=== PATIENT | male | born 1995 | race Caucasian/White ===

== ENCOUNTER 2016-10-15 02:38 | Inpatient (IN) ==
[2016-10-15] MEDS ORDERED: Propofol 500 MG/50 ML INFUS..BTL ONE (02:55)
[2016-10-15] MEDS ORDERED: Ondansetron 4 MG/2 ML VIAL IVP ONE (02:58)
[2016-10-15] MEDS ORDERED: 0.9 % Sodium Chloride 1,000 ML IVC ONE ×2 (02:58→03:01)
[2016-10-15] MEDS ORDERED: *HR* Etomidate 20 MG/10 ML AMPUL IVP ONE (02:59)
[2016-10-15] MEDS ORDERED: *HR* Rocuronium Bromide 50 MG/5 ML VIAL IVP ONE (02:59)
--- NOTE | 2016-10-15 03:14 | Emergency Department Note ---
Overdose - [facility] Narrative Medical decision making narrative: After intubation, vitals within normal limits. Leukocytosis 12.3. BMP not concerning. UA negative. Urine tox positive for opiates and marijuana. ABG showed pH of 7.19. Respiratory was aware of this and change the vent settings. CT head negative, CXR negative for any acute cardiopulm process. Spoke with Dr. Sahu for admission to ICU. He recommended switching current propofol drip to precedex to prevent making the patient any more acidotic. WIll switch med orders. - Medical Records Medical records reviewed: Yes I reviewed the patient's medical records. - Lab Data Lab results reviewed: Yes I reviewed the patient's lab results. Result diagrams: 10/15/16 03:53 10/15/16 03:53 Lab Results 10/15/16 10/15/16 10/15/16 Range/Units 03:22 03:22 03:32 WBC (4.3-11.1) K/mcL RBC (4.19-5.50) M/mcL Hgb (12.9-16.9) g/dL Hct (37.5-50.1) % MCV (83.0-100.0) fL MCH (28.0-33.3) pg MCHC (31.6-35.5) g/dL RDW (11.5-14.5) % Plt Count (140-400) K/mcL MPV (9.4-12.4) fL Immature Gran % (0-4) % Seg Neutrophils % % Lymphocytes % % Monocytes % % Eosinophils % % Basophils % % Neutrophils # (1.6-8.9) K/mcL Lymphocytes # (0.6-4.6) K/mcL Monocytes # (0.0-1.3) K/mcL Eosinophils # (0.0-0.6) K/mcL Basophils # (0.0-0.2) K/mcL ABG pH 7.19 L* (7.32-7.45) pH Units ABG pCO2 64 H (35-45) mmHg ABG pO2 350 H (85-104) mmHg ABG HCO3 24.4 (21-27) mEQ/L ABG Total CO2 26.4 H (20-26) mEq/L ABG O2 Saturation 100 H (95-98) % ABG Base Excess -5.0 L (-2.0 to 3.0) mEq/L Blood Gas Modality VCT Inspired O2 100 % Sodium (136-145) mEq/L Potassium (3.5-4.5) mEq/L Chloride (98-109) mEq/L Carbon Dioxide (19-29) mEq/L BUN (8-26) mg/dL Creatinine (0.72-1.25) mg/dL Est GFR ( Amer) (> 60) Est GFR (Non-Af Amer) (> 60) BUN/Creatinine Ratio (6-26) Glucose (70-99) mg/dL POC Glucose (58-89) Calculated Osmolality (280-300) Lactic Acid (0.5-2.2) mmol/L Calcium (8.6-10.8) mg/dL Total Bilirubin (0.2-1.2) mg/dL Direct Bilirubin (0.0-0.5) mg/dL Indirect Bilirubin (0.0-1.2) mg/dL AST (5-34) Units/L ALT (0-55) Units/L Alkaline Phosphatase (38-126) Units/L Serum Total Protein (6.0-8.3) g/dL Albumin (3.5-5.0) g/dL Globulin (2.4-3.5) g/dL Albumin/Globulin Ratio (1.1-2.2) Urine Color Yellow (Yellow) Urine Clarity Clear (Clear) Urine pH 6.5 (5.0-8.0) pH Units Ur Specific [place] 1.012 (1.010-1.025) Urine Protein 100 H (Neg-Trace) mg/dL Urine Glucose (UA) 100 H (Normal) mg/dL Urine Ketones Negative (Negative) mg/dL Urine Blood Trace H (Negative) Urine Nitrite Negative (Negative) Urine Bilirubin Negative (Negative) Urine Urobilinogen Normal (Normal) mg/dL Ur Leukocyte Esterase Negative (Negative) Urine Microscopic RBC 0-3 (0-3) per hpf Urine Microscopic WBC 0-3 (0-3) per hpf Ur Squamous Epith Cells Many H (None-Few) per lpf Urine Bacteria None Seen (None-Few) per hpf Hyaline Casts None Seen (None-Few) per lpf Salicylates (15-30) mg/dL Urine Opiates Screen Positive H (Iyqxqg=681) ng/mL Acetaminophen (10-30) mcg/mL Ur Barbiturates Screen Negative (Xcxgqv=317) ng/mL Ur Phencyclidine Scrn Negative (Cutoff=25) ng/mL Ur Amphetamines Screen Negative (Zaxvvd=1657) ng/mL U Benzodiazepines Scrn Negative (Iouksv=977) ng/mL Urine Cocaine Screen Negative (Cutoff= 300) ng/mL U Marijuana (THC) Screen Positive H (Cutoff = 50) ng/mL Ethyl Alcohol (0-10) mg/dL 10/15/16 10/15/16 10/15/16 Range/Units 03:53 03:53 03:53 WBC 12.3 H (4.3-11.1) K/mcL RBC 5.11 (4.19-5.50) M/mcL Hgb 15.8 (12.9-16.9) g/dL Hct 46.9 (37.5-50.1) % MCV 91.8 (83.0-100.0) fL MCH 30.9 (28.0-33.3) pg MCHC 33.7 (31.6-35.5) g/dL RDW 13.6 (11.5-14.5) % Plt Count 202 (140-400) K/mcL MPV 9.9 (9.4-12.4) fL Immature Gran % 0.6 (0-4) % Seg Neutrophils % 85.7 % Lymphocytes % 7.5 % Monocytes % 5.7 % Eosinophils % 0.2 % Basophils % 0.3 % Neutrophils # 10.6 H (1.6-8.9) K/mcL Lymphocytes # 0.9 (0.6-4.6) K/mcL Monocytes # 0.7 (0.0-1.3) K/mcL Eosinophils # 0.0 (0.0-0.6) K/mcL Basophils # 0.0 (0.0-0.2) K/mcL ABG pH (7.32-7.45) pH Units ABG pCO2 (35-45) mmHg ABG pO2 (85-104) mmHg ABG HCO3 (21-27) mEQ/L ABG Total CO2 (20-26) mEq/L ABG O2 Saturation (95-98) % ABG Base Excess (-2.0 to 3.0) mEq/L Blood Gas Modality Inspired O2 % Sodium 145 (136-145) mEq/L Potassium 3.3 L (3.5-4.5) mEq/L Chloride 110 H (98-109) mEq/L Carbon Dioxide 22 (19-29) mEq/L BUN 11 (8-26) mg/dL Creatinine 0.88 (0.72-1.25) mg/dL Est GFR ( Amer) > 60 (> 60) Est GFR (Non-Af Amer) > 60 (> 60) BUN/Creatinine Ratio 13 (6-26) Glucose 146 H (70-99) mg/dL POC Glucose (58-89) Calculated Osmolality 302 H (280-300) Lactic Acid 2.9 H (0.5-2.2) mmol/L Calcium 8.1 L (8.6-10.8) mg/dL Total Bilirubin 0.3 (0.2-1.2) mg/dL Direct Bilirubin 0.2 (0.0-0.5) mg/dL Indirect Bilirubin 0.1 (0.0-1.2) mg/dL AST 32 (5-34) Units/L ALT 35 (0-55) Units/L Alkaline Phosphatase 64 (38-126) Units/L Serum Total Protein 7.5 (6.0-8.3) g/dL Albumin 4.3 (3.5-5.0) g/dL Globulin 3.2 (2.4-3.5) g/dL Albumin/Globulin Ratio 1.3 (1.1-2.2) Urine Color (Yellow) Urine Clarity (Clear) Urine pH (5.0-8.0) pH Units Ur Specific [place] (1.010-1.025) Urine Protein (Neg-Trace) mg/dL Urine Glucose (UA) (Normal) mg/dL Urine Ketones (Negative) mg/dL Urine Blood (Negative) Urine Nitrite (Negative) Urine Bilirubin (Negative) Urine Urobilinogen (Normal) mg/dL Ur Leukocyte Esterase (Negative) Urine Microscopic RBC (0-3) per hpf Urine Microscopic WBC (0-3) per hpf Ur Squamous Epith Cells (None-Few) per lpf Urine Bacteria (None-Few) per hpf Hyaline Casts (None-Few) per lpf Salicylates < 5.0 L (15-30) mg/dL Urine Opiates Screen (Jwkfxk=874) ng/mL Acetaminophen < 1.0 L (10-30) mcg/mL Ur Barbiturates Screen (Vlebga=283) ng/mL Ur Phencyclidine Scrn (Cutoff=25) ng/mL Ur Amphetamines Screen (Sqeitc=1542) ng/mL U Benzodiazepines Scrn (Clxobj=734) ng/mL Urine Cocaine Screen (Cutoff= 300) ng/mL U Marijuana (THC) Screen (Cutoff = 50) ng/mL Ethyl Alcohol 224 H (0-10) mg/dL 10/15/16 Range/Units 05:22 WBC (4.3-11.1) K/mcL RBC (4.19-5.50) M/mcL Hgb (12.9-16.9) g/dL Hct (37.5-50.1) % MCV (83.0-100.0) fL MCH (28.0-33.3) pg MCHC (31.6-35.5) g/dL RDW (11.5-14.5) % Plt Count (140-400) K/mcL MPV (9.4-12.4) fL Immature Gran % (0-4) % Seg Neutrophils % % Lymphocytes % % Monocytes % % Eosinophils % % Basophils % % Neutrophils # (1.6-8.9) K/mcL Lymphocytes # (0.6-4.6) K/mcL Monocytes # (0.0-1.3) K/mcL Eosinophils # (0.0-0.6) K/mcL Basophils # (0.0-0.2) K/mcL ABG pH (7.32-7.45) pH Units ABG pCO2 (35-45) mmHg ABG pO2 (85-104) mmHg ABG HCO3 (21-27) mEQ/L ABG Total CO2 (20-26) mEq/L ABG O2 Saturation (95-98) % ABG Base Excess (-2.0 to 3.0) mEq/L Blood Gas Modality Inspired O2 % Sodium (136-145) mEq/L Potassium (3.5-4.5) mEq/L Chloride (98-109) mEq/L Carbon Dioxide (19-29) mEq/L BUN (8-26) mg/dL Creatinine (0.72-1.25) mg/dL Est GFR ( Amer) (> 60) Est GFR (Non-Af Amer) (> 60) BUN/Creatinine Ratio (6-26) Glucose (70-99) mg/dL POC Glucose 91 H (58-89) Calculated Osmolality (280-300) Lactic Acid (0.5-2.2) mmol/L Calcium (8.6-10.8) mg/dL Total Bilirubin (0.2-1.2) mg/dL Direct Bilirubin (0.0-0.5) mg/dL Indirect Bilirubin (0.0-1.2) mg/dL AST (5-34) Units/L ALT (0-55) Units/L Alkaline Phosphatase (38-126) Units/L Serum Total Protein (6.0-8.3) g/dL Albumin (3.5-5.0) g/dL Globulin (2.4-3.5) g/dL Albumin/Globulin Ratio (1.1-2.2) Urine Color (Yellow) Urine Clarity (Clear) Urine pH (5.0-8.0) pH Units Ur Specific [place] (1.010-1.025) Urine Protein (Neg-Trace) mg/dL Urine Glucose (UA) (Normal) mg/dL Urine Ketones (Negative) mg/dL Urine Blood (Negative) Urine Nitrite (Negative) Urine Bilirubin (Negative) Urine Urobilinogen (Normal) mg/dL Ur Leukocyte Esterase (Negative) Urine Microscopic RBC (0-3) per hpf Urine Microscopic WBC (0-3) per hpf Ur Squamous Epith Cells (None-Few) per lpf Urine Bacteria (None-Few) per hpf Hyaline Casts (None-Few) per lpf Salicylates (15-30) mg/dL Urine Opiates Screen (Uaoccf=124) ng/mL Acetaminophen (10-30) mcg/mL Ur Barbiturates Screen (Pxxwhv=156) ng/mL Ur Phencyclidine Scrn (Cutoff=25) ng/mL Ur Amphetamines Screen (Ppjpnn=4474) ng/mL U Benzodiazepines Scrn (Zhdgos=604) ng/mL Urine Cocaine Screen (Cutoff= 300) ng/mL U Marijuana (THC) Screen (Cutoff = 50) ng/mL Ethyl Alcohol (0-10) mg/dL - Radiology Data Radiology results reviewed: Yes I reviewed the patient's radiology results. Chest X-Ray 10/15/16 02:58 IMPRESSION: ET tube in good position with no acute cardiopulmonary process D/ / Paul Painter MD / Paul Painter MD Interpreting Provider: Paul Painter MD Head CT 10/15/16 02:58 IMPRESSION: No acute intracranial abnormality. D/ / Margartio Le MD / Margarito Le MD Interpreting Provider: Margarito Le MD - EKG Data EKG attestation: Yes I reviewed and interpreted this EKG. EKG results narrative: 10/15/2016 and 02:41. Sinus rhythm. First-degree block. Rate 70. ID 244. QRS 117. QTC 434. Normal axis. No acute ST elevation or depression. Overdose HPI - General Chief Complaint: ED Overdose Stated Complaint: overdose Time Seen by Provider: 10/15/16 02:47 Source: EMS Mode of arrival: EMS Limitations: altered mental status Nursing Notes Reviewed: Yes Vital Signs Reviewed: Yes - History of Present Illness HPI Narrative: Patient is a 21-year-old male that presented unresponsive via EMS. EMS and police state the patient was found unresponsive at a local bar. He was taken outside and water was thrown on him to try to wake him up. Witnesses say that they were unsure as to what happened or how long he was down. On arrival, EMS stated that oxygen saturation was in the 30s. They gave him 2 mg of Narcan without much improvement in mental status. They placed a nasal trumpet and began bagging the patient. Upon arrival, patient was not responsive, mildly groaning. Pupils were equal and reactive but miotic. 2 mg of Narcan was given here, patient begans shaking and was extending his upper extremities in a possible decorticate position. Patient had to be intubated due to not protecting his airway. Rocuronium and etomidate were used. Patient placed on propofol drip. - Related Data Home Medications Medication Instructions Recorded Confirmed No Known Home Drugs 10/15/16 10/15/16 Allergies Allergy/AdvReac Type Severity Reaction Status Date / Time No Known Allergies Allergy Verified 10/15/16 02:39 Limitations: ROS unobtainable due to patients medical condition Past Medical History - Past Medical History Medical history: Reports: non-contributory Psychiatric history: Reports: no psych history - Social History Smoking Status: Unknown if ever smoked Smokeless Tobacco Status: No Alcohol use: Reports: unknown Drug use: Reports: unknown Physical Exam - General Limitations: altered mental status General appearance: obtunded - Head Head exam: atraumatic, normocephalic, normal inspection - Eye Eye exam: Present: PERRL, EOMI, miosis - Respiratory Respiratory exam: Present: normal lung sounds bilaterally, other (Patient being bagged) - Cardiovascular Cardiovascular exam: Present: regular rate, normal rhythm, normal heart sounds - Abdominal Exam Abdominal exam: Present: soft, Non-Tender. Absent: tenderness, distention, guarding, rebound, rigidity - Extremities Exam Extremities exam: Present: normal inspection - Neurological Exam Neurological exam: Present: other (unresponsive) - Psychiatric Psychiatric exam: Present: other - Skin Skin exam: Present: intact, other (cold,wet) Course Course Narrative: After intubation, vitals within normal limits. Leukocytosis 12.3. BMP not concerning. UA negative. Urine tox positive for opiates and marijuana. ABG showed pH of 7.19. Respiratory was aware of this and change the vent settings. CT head negative, CXR negative for any acute cardiopulm process. Spoke with Dr. Sahu for admission to ICU. He recommended switching current propofol drip to precedex to prevent making the patient any more acidotic. WIll switch med orders. Chest X-Ray 10/15/16 02:58 IMPRESSION: ET tube in good position with no acute cardiopulmonary process D/ / Paul Painter MD / Paul Painter MD Interpreting Provider: Paul Painter MD Head CT 10/15/16 02:58 IMPRESSION: No acute intracranial abnormality. D/ / Margarito Le MD / Margarito Le MD Interpreting Provider: Margarito Le MD Vital Signs Temperature 97.4 F L 10/15/16 02:40 Pulse Rate 54 10/15/16 02:40 Respiratory Rate 8 10/15/16 02:40 Blood Pressure 137/100 10/15/16 02:40 O2 Sat by Pulse Oximetry 100 10/15/16 02:40 Temperature 97.4 F L 10/15/16 02:40 Pulse Rate 60 10/15/16 04:41 Respiratory Rate 16 10/15/16 04:41 Blood Pressure 113/56 10/15/16 04:41 O2 Sat by Pulse Oximetry 99 10/15/16 04:41 Oxygen Delivery Oxygen Delivery Ventilator Procedures - Intubation Time out performed: Yes sedative: Etomidate Mg Given: 20 paralytic: Rocuronium Mg Given: 70 Laryngoscope: Cristofer ET Tube Size: Oral ET Tube Uncuffed: No Tube Secured Depth (cm): 24 Tube Secured Location: lips Tube Placement Confirmation: visualized tube passing through cords, equal breath sounds bilaterally, no breath sounds over epigastrium Patient Tolerated Procedure: well, no complications Intubation Complications: none Additional Comments: ET tube in good position on chest x-ray Disposition Clinical Impression: Opiate abuse, episodic, Marijuana abuse Overdose Qualifiers: Encounter type: initial encounter Injury intent: accidental or unintentional Qualified Code(s): T50.901A - Poisoning by unspecified drugs, medicaments and biological substances, accidental (unintentional), initial encounter Disposition: Admitted As Inpatient Condition: Serious Time of Disposition: 04:52 Attestation Statement - Attestation Attestation: I examined this patient and my medical decision-making was reviewed with the POSITION DESCRIPTION MANAGER/PA/Advanced Practice Nurse/Resident Physician. I agree with the documented findings, disposition and treatment plan as described except to the extent set forth below. Patient to emergency department by [facility]. Patient was found unresponsive inside a local bar. People carried him outside into the rain and called 911. Medics and police anrrived and nobody knew what he had taken. Medics state when they arrived his oxygen saturation was in the 30s. He had been administered 2 mg of intranasal Narcan by police. They began bag valve mask ventilation and placed a nasal trumpet. They also placed an IV and gave him 2 mg of Narcan IV. On his arrival here patient was unresponsive and not breathing. His oxygen saturation was 98%. He was given 4 mg of Narcan IV. He began breathing on his own and did cough. He was not following commands or opening his eyes. Patient appeared to be extending his upper arms. Concern for decorticate posturing. Patient was intubated after etomidate and rocuronium. Sedated on propofol drip at this time. Mom and dad at bedside and do confirm he has a prior history of heroin abuse. 40 minutes of critical care exclusive of separately billable procedures.
[2016-10-15 03:34] LABS: Bilirubin,Urine Negative (Negative); Blood,Urine Trace (Negative); Clarity,Urine Clear (Clear); Color,Urine Yellow (Yellow); Glucose,Urine (UA) 100 mg/dL (Normal); Ketones,Urine Negative (Negative); Leukocyte Esterase,Urine Negative (Negative); Nitrite,Urine Negative (Negative); PH,Urine 6.5 pH Units (5.0-8.0); Protein,Urine 100 mg/dL (Neg-Trace); Specific Gravity,Urine 1.012 (1.010-1.025); Urobilinogen,Urine Normal (Normal)
[2016-10-15 03:36] LABS: Bacteria,Urine None Seen per hpf (None-Few); Hyaline Casts,Urine None Seen per lpf (None-Few); RBC,Urine 0-3 per hpf (0-3); Squamous Epithelial Cell,Urine Many per lpf (None-Few); WBC,Urine 0-3 per hpf (0-3)
[2016-10-15 03:40] LABS: Amphetamine Screen,Urine Negative ng/mL (Cutoff=1000); Barbiturate Screen,Urine Negative ng/mL (Cutoff=200); Benzodiazepines Screen,Urine Negative ng/mL (Cutoff=200); Cannabinoid Screen,Urine Positive ng/mL (Cutoff = 50); Cocaine Screen,Urine Negative ng/mL (Cutoff= 300); Opiate Screen,Urine Positive ng/mL (Cutoff=300); Phencyclidine Screen,Urine Negative ng/mL (Cutoff=25)
[2016-10-15 03:40] LABS: ABG HCO3 24.4 mEQ/L (21-27); ABG Oxygen Saturation 100 % (95-98); ABG PCO2 64 mmHg (35-45); ABG PO2 350 mmHg (85-104); ABG TCO2 26.4 mEq/L (20-26)
[2016-10-15 03:41] LABS: Blood Gas FiO2 100 %
[2016-10-15 03:42] LABS: ABG PH 7.19 pH Units (7.32-7.45)
[2016-10-15 04:01] LABS: Basophils % 0.3 %; Eosinophils % 0.2 %; Hematocrit 46.9 % (37.5-50.1); Hemoglobin 15.8 g/dL (12.9-16.9); Immature Granulocytes % 0.6 % (0-4); Lymphocytes # 0.9 K/mcL (0.6-4.6); Lymphocytes % 7.5 %; Mean Corpuscular HGB Conc 33.7 g/dL (31.6-35.5); Mean Corpuscular Hemoglobin 30.9 pg (28.0-33.3); Mean Corpuscular Volume 91.8 fL (83.0-100.0); Mean Platelet Volume 9.9 fL (9.4-12.4); Monocytes # 0.7 K/mcL (0.0-1.3); Monocytes % 5.7 %; Neutrophils # 10.6 K/mcL (1.6-8.9); Platelet Count 202 K/mcL (140-400); Red Blood Count 5.11 M/mcL (4.19-5.50); Red Cell Distribution Width 13.6 % (11.5-14.5); Segmented Neutrophils % 85.7 %
[2016-10-15 04:16] LABS: Alanine Aminotransferase 35 Units/L (0-55); Albumin 4.3 g/dL (3.5-5.0); Albumin/Globulin Ratio 1.3 (1.1-2.2); Alkaline Phosphatase 64 Units/L (38-126); Aspartate Amino Transferase 32 Units/L (5-34); BUN/Creatinine Ratio 13 (6-26); Bilirubin,Direct 0.2 mg/dL (0.0-0.5); Bilirubin,Indirect 0.1 mg/dL (0.0-1.2); Bilirubin,Total 0.3 mg/dL (0.2-1.2); Blood Urea Nitrogen 11 mg/dL (8-26); Calcium 8.1 mg/dL (8.6-10.8); Carbon Dioxide 22 mEq/L (19-29); Chloride 110 mEq/L (98-109); Ethanol 224 mg/dL (0-10); Globulin 3.2 g/dL (2.4-3.5); Glucose 146 mg/dL (70-99); Osmolality,Calculated 302 (280-300); Potassium 3.3 mEq/L (3.5-4.5); Sodium 145 mEq/L (136-145); Total Protein 7.5 g/dL (6.0-8.3); eGFR For African Americans > 60 (> 60); eGFR For Non-African Americans > 60 (> 60)
[2016-10-15 04:17] LABS: Acetaminophen < 1.0 mcg/mL (10-30); Salicylate < 5.0 mg/dL (15-30)
[2016-10-15] MEDS ORDERED: 0.9 % Sodium Chloride 1,000 ML IVC SCH ×2 (04:30→05:00)
[2016-10-15] MEDS ORDERED: Acetaminophen 650 MG RECTAL SUPP RC PRN (04:46)
[2016-10-15] MEDS ORDERED: Naloxone 0.4 MG/ML INJ IVP PRN (04:46)
[2016-10-15] MEDS ORDERED: Ondansetron 4 MG/2 ML VIAL IVP PRN ×2 (04:46→15:20)
[2016-10-15] MEDS ORDERED: *HR* LORazepam 2 MG/ML VIAL IVP PRN ×3 (04:53)
--- NOTE | 2016-10-15 04:58 | Internal Med History&Physical ---
Date of Encounter: 10/15/16 Time of Encounter: 04:56 Assessment and Plan (1) Metabolic acidosis with respiratory acidosis Current visit: Yes Status: Acute Acute metabolic acidosis and respiratory acidosis secondary to acute respiratory failure due to acute alcohol intoxication in combination with polysubstance abuse and possible acute opioid Overdose *Precedex Defer neurological examination after rocuronium clears out Guarded prognosis is minimal how long the patient was anoxic, high risk of anoxic brain injury May repeat ABG and consider use of bicarbonate Protonix IV twice a day ( bloody material from OG tube possible from trauma vs acute gastritis) consider GI consult if persists (2) Alcohol abuse Current visit: Yes Status: Acute May use Ativan as needed (3) Tobacco abuse Current visit: Yes Status: Acute (4) Polysubstance abuse Current visit: Yes Status: Acute (5) Marijuana abuse Current visit: Yes Status: Acute (6) Opiate abuse, episodic Current visit: Yes Status: Acute (7) Overdose Current visit: Yes Status: Acute Qualifiers: Encounter type: initial encounter Injury intent: accidental or unintentional Qualified Code(s): T50.901A - Poisoning by unspecified drugs, medicaments and biological substances, accidental (unintentional), initial encounter (8) Hypokalemia Current visit: Yes Status: Acute Replete as needed Protonix IV for GI prophylaxis and sequential compression devices for DVT prophylaxis. Admitted as inpatient, expected stay more than 2 midnights. Full code. Time spent on this critical care assessment 40 minutes. High risk due to possible anoxia Internal Medicine - H&P: HPI Chief complaint: Overdose Admitted From: Emergency Dept History of present illness: Mr. Saini is a 21 year old male with a past medical history of polysubstance abuse, alcohol abuse, tobacco use who was brought to emergency room by the EMS after he was found at the bar where he passed out. He is unknown what time the patient passed out and according to the ER physician he saturation of oxygen was in the 30s. We will also count is 12.3 pH 7.19 PCO2 64 and PO2 350 potassium is 3.3 lactic acid 2.9 urine tox screen is positive for opiates and marijuana alcohol level is 224 CT scan of the head was unremarkable and did not show any intracranial hemorrhage. Chest x-ray does not show any acute cardiopulmonary disease. Part of the story was taken from his mother who was unaware of his recent drug abuse, she says last time she was aware she was taking drugs was 3 years ago. The patient received rocuronium and is on propofol, unable to assess neurological status at this point Past Med Surg Social Fam HX - Past Medical History Medical history: non-contributory, other (Polysubstance abuse, tobacco use, alcohol use) Psychiatric history: no psych history - Past Surgical History Surgical History: no surgical history - Social History Smoking Status: Current every day smoker Packs per day: One pack per day Smokeless Tobacco Status: No Alcohol use: recent Drug use: opiates, marijuana, other (Unknown whether he has history of IV drug abuse) - Additional Family History Additional family history: Father and mother with hypertension Internal Medicine - H&P: Meds No Known Home Drugs 10/15/16 [History] Allergies No Known Allergies Allergy (Verified 10/15/16 02:39) All Systems PM: A 10-system review of systems was performed and is negative for pertinent findings except as documented above in the HPI. Review of systems: Unable to complete review of systems - Constitutional Vitals: Temp Pulse Resp BP Pulse Ox 97.4 F L 60 16 113/56 99 10/15/16 02:40 10/15/16 04:41 10/15/16 04:41 10/15/16 04:41 10/15/16 04:41 General appearance: Present: A&O X 0 (ET-tube in place, OG-tube with possible dark blood) - Head Head exam: Present: atraumatic, normocephalic - Eye Eye exam: Present: PERRL, conjuntiva pink, sclera anicteric Pupils: Present: PERRL - Neck Neck exam general surgery: Present: supple, trachea midline. Absent: lymphadenopathy - Respiratory Respiratory exam: Present: decreased breath sounds, CTAB. Absent: accessory muscle use, rales, rhonchi, wheezes - Cardiovascular Cardiovascular exam: Present: RRR, +S1, +S2. Absent: diastolic murmur, gallop, rubs, systolic murmur - GI/Abdominal GI/Abdominal exam: Present: normal bowel sounds, soft, no peritoneal signs. Absent: distended, tenderness - Extremities Exam Extremities exam: Present: warm, radial pulses palpable and symetrical. Absent : calf tenderness, cyanotic, pedal edema - Neurological Exam Neurological exam: Absent: CN II-XII intact, oriented X3, no focal deficits ( Unresponsive, unable to elicit reflexes due to rocuronium and sedation), pronater drift, facial droop, speech deficit - Skin Skin exam: Present: dry, intact Internal Med - H&P Results - Labs CBC & Chem 7: 10/15/16 03:53 10/15/16 03:53
[2016-10-15] MEDS ORDERED: Dexmedetomidine HCl 400 MCG/100 ML MLS IVC SCH (05:00)
[2016-10-15] MEDS ORDERED: *HR* Midazolam HCl 5 MG/5 ML VIAL IVP ONE (05:06)
[2016-10-15] MEDS ORDERED: *HR* Midazolam HCl 2 MG/2 ML VIAL ONE (05:08)
[2016-10-15 05:45] LABS: ABG Base Excess 0.3 mEq/L (-2.0 to 3.0); ABG HCO3 27.3 mEQ/L (21-27); ABG Oxygen Saturation 99 % (95-98); ABG PCO2 53 mmHg (35-45); ABG PH 7.32 pH Units (7.32-7.45); ABG PO2 136 mmHg (85-104); ABG TCO2 28.9 mEq/L (20-26); Blood Gas FiO2 40 %
[2016-10-15] MEDS ORDERED: Pantoprazole 40 MG VIAL IVPB SCH (07:30)
[2016-10-15] MEDS ORDERED: Nicotine 21 MG PATCH.TD24 TD SCH (09:00)
--- NOTE | 2016-10-15 10:52 | Pulmonology Consult Note ---
<Luke Andrade - Last Filed: 10/15/16 10:52> Date of Encounter: 10/15/16 Past Med Surg Social Fam HX - Past Medical History Medical history: non-contributory Psychiatric history: no psych history - Past Surgical History Surgical History: no surgical history - Social History Smoking Status: Current every day smoker Packs per day: 1 Smokeless Tobacco Status: No Alcohol use: occasionally Drug use: unknown Medications and Allergies No Known Home Drugs 10/15/16 [History] Allergies No Known Allergies Allergy (Verified 10/15/16 02:39) All Systems: A 10-system review of systems was performed and is negative for pertinent findings except as documented above in the HPI. Physical Examination Vital Signs: Vital Signs, Last 4 Hours Temp Pulse Resp BP Pulse Ox 10/15/16 10:00 56 12 114/74 96 10/15/16 09:00 56 12 115/66 96 10/15/16 08:30 52 16 108/54 98 10/15/16 08:00 52 16 108/54 98 10/15/16 07:38 58 10/15/16 07:29 16 114/61 99 10/15/16 07:00 97.5 F L 62 16 100/62 98 Ventilator Settings Ventilator Settings: Ventilator Settings, Last 8 Hours Ventilator Mode VC+ Ventilator Mode A/C Ventilator Mode VC+ Ventilator Mode VC+ Ventilator Mode VC+ Ventilator Mode VC+ Ventilator Mode VC+ Ventilator Mode VC+ Ventilator Tidal Volume 500 Setting Ventilator Tidal Volume 500 Setting Ventilator Tidal Volume 500 Setting Ventilator Tidal Volume 500 Setting Ventilator Tidal Volume 500 Setting Ventilator Tidal Volume 500 Setting Ventilator Tidal Volume 500 Setting Ventilator Tidal Volume 500 Setting Ventilator Respiratory Rate 16 Setting Ventilator Respiratory Rate 16 Setting Ventilator Respiratory Rate 16 Setting Ventilator Respiratory Rate 16 Setting Ventilator Respiratory Rate 16 Setting Ventilator Respiratory Rate 16 Setting Ventilator Respiratory Rate 16 Setting Ventilator Respiratory Rate 16 Setting Actual Respiratory Rate 16 Actual Respiratory Rate 16 Actual Respiratory Rate 16 Actual Respiratory Rate 16 Actual Respiratory Rate 16 Actual Respiratory Rate 16 Actual Respiratory Rate 16 Positive End Expiratory 5 Pressure Positive End Expiratory 5 Pressure Positive End Expiratory 5 Pressure Positive End Expiratory 5 Pressure Positive End Expiratory 5 Pressure Positive End Expiratory 5 Pressure Positive End Expiratory 5 Pressure Positive End Expiratory 5 Pressure Peak Inspiratory Airway 23 Pressure Peak Inspiratory Airway 22 Pressure Peak Inspiratory Airway 22 Pressure Peak Inspiratory Airway 18 Pressure Peak Inspiratory Airway 18 Pressure Peak Inspiratory Airway 19 Pressure Peak Inspiratory Airway 16 Pressure Results - Laboratory Findings CBC and BMP: 10/15/16 03:53 10/15/16 03:53 ABG ABG pH 7.32 pH Units (7.32-7.45) D 10/15/16 05:35 ABG pCO2 53 mmHg (35-45) H 10/15/16 05:35 ABG pO2 136 mmHg (85-104) H 10/15/16 05:35 ABG O2 Saturation 99 % (95-98) H 10/15/16 05:35 Abnormal lab findings: Abnormal lab results WBC 12.3 K/mcL (4.3-11.1) H 10/15/16 03:53 Neutrophils # 10.6 K/mcL (1.6-8.9) H 10/15/16 03:53 ABG pCO2 53 mmHg (35-45) H 10/15/16 05:35 ABG pO2 136 mmHg (85-104) H 10/15/16 05:35 ABG HCO3 27.3 mEQ/L (21-27) H 10/15/16 05:35 ABG Total CO2 28.9 mEq/L (20-26) H 10/15/16 05:35 ABG O2 Saturation 99 % (95-98) H 10/15/16 05:35 Potassium 3.3 mEq/L (3.5-4.5) L 10/15/16 03:53 Chloride 110 mEq/L (98-109) H 10/15/16 03:53 Glucose 146 mg/dL (70-99) H 10/15/16 03:53 POC Glucose 91 (58-89) H 10/15/16 05:22 Calculated Osmolality 302 (280-300) H 10/15/16 03:53 Calcium 8.1 mg/dL (8.6-10.8) L 10/15/16 03:53 Urine Protein 100 mg/dL (Neg-Trace) H 10/15/16 03:22 Urine Glucose (UA) 100 mg/dL (Normal) H 10/15/16 03:22 Urine Blood Trace (Negative) H 10/15/16 03:22 Ur Squamous Epith Cells Many per lpf (None-Few) H 10/15/16 03:22 Salicylates < 5.0 mg/dL (15-30) L 10/15/16 03:53 Urine Opiates Screen Positive ng/mL (Qlwkxw=481) H 10/15/16 03:22 Acetaminophen < 1.0 mcg/mL (10-30) L 10/15/16 03:53 U Marijuana (THC) Screen Positive ng/mL (Cutoff = 50) H 10/15/16 03:22 Ethyl Alcohol 224 mg/dL (0-10) H 10/15/16 03:53 - Clinical Findings Intake & Output: Intake & Output 10/14/16 10/15/16 10/15/16 23:59 07:59 15:59 Intake Total 1000 / 1000 Output Total 725 / 725 200 / 200 Balance 275 / 275 -200 / -200 Weight 78 kg Consult Discharge Plan - Plan Referrals: NO,PCP [Primary Care Provider] - <Ambrose Gomez - Last Filed: 10/15/16 12:22> Date of Encounter: 10/15/16 All Systems: A 10-system review of systems was performed and is negative for pertinent findings except as documented above in the HPI. Physical Examination Vital Signs: Vital Signs, Last 4 Hours Pulse Resp BP Pulse Ox 10/15/16 11:00 65 14 95/51 98 10/15/16 10:57 65 10/15/16 10:00 56 12 114/74 96 10/15/16 09:10 13 100 10/15/16 09:00 56 12 115/66 96 10/15/16 08:30 52 16 108/54 98 Ventilator Settings Ventilator Settings: Ventilator Settings, Last 8 Hours Ventilator Mode VC+ Ventilator Mode A/C Ventilator Mode VC+ Ventilator Mode VC+ Ventilator Mode VC+ Ventilator Mode VC+ Ventilator Mode VC+ Ventilator Mode VC+ Ventilator Tidal Volume 500 Setting Ventilator Tidal Volume 500 Setting Ventilator Tidal Volume 500 Setting Ventilator Tidal Volume 500 Setting Ventilator Tidal Volume 500 Setting Ventilator Tidal Volume 500 Setting Ventilator Tidal Volume 500 Setting Ventilator Tidal Volume 500 Setting Ventilator Respiratory Rate 16 Setting Ventilator Respiratory Rate 16 Setting Ventilator Respiratory Rate 16 Setting Ventilator Respiratory Rate 16 Setting Ventilator Respiratory Rate 16 Setting Ventilator Respiratory Rate 16 Setting Ventilator Respiratory Rate 16 Setting Ventilator Respiratory Rate 16 Setting Actual Respiratory Rate 16 Actual Respiratory Rate 16 Actual Respiratory Rate 16 Actual Respiratory Rate 16 Actual Respiratory Rate 16 Actual Respiratory Rate 16 Actual Respiratory Rate 16 Positive End Expiratory 5 Pressure Positive End Expiratory 5 Pressure Positive End Expiratory 5 Pressure Positive End Expiratory 5 Pressure Positive End Expiratory 5 Pressure Positive End Expiratory 5 Pressure Positive End Expiratory 5 Pressure Positive End Expiratory 5 Pressure Peak Inspiratory Airway 23 Pressure Peak Inspiratory Airway 22 Pressure Peak Inspiratory Airway 22 Pressure Peak Inspiratory Airway 18 Pressure Peak Inspiratory Airway 18 Pressure Peak Inspiratory Airway 19 Pressure Peak Inspiratory Airway 16 Pressure Results - Laboratory Findings CBC and BMP: 10/15/16 03:53 10/15/16 03:53 ABG ABG pH 7.32 pH Units (7.32-7.45) D 10/15/16 05:35 ABG pCO2 53 mmHg (35-45) H 10/15/16 05:35 ABG pO2 136 mmHg (85-104) H 10/15/16 05:35 ABG O2 Saturation 99 % (95-98) H 10/15/16 05:35 Abnormal lab findings: Abnormal lab results WBC 12.3 K/mcL (4.3-11.1) H 10/15/16 03:53 Neutrophils # 10.6 K/mcL (1.6-8.9) H 10/15/16 03:53 ABG pCO2 53 mmHg (35-45) H 10/15/16 05:35 ABG pO2 136 mmHg (85-104) H 10/15/16 05:35 ABG HCO3 27.3 mEQ/L (21-27) H 10/15/16 05:35 ABG Total CO2 28.9 mEq/L (20-26) H 10/15/16 05:35 ABG O2 Saturation 99 % (95-98) H 10/15/16 05:35 Potassium 3.3 mEq/L (3.5-4.5) L 10/15/16 03:53 Chloride 110 mEq/L (98-109) H 10/15/16 03:53 Glucose 146 mg/dL (70-99) H 10/15/16 03:53 POC Glucose 91 (58-89) H 10/15/16 05:22 Calculated Osmolality 302 (280-300) H 10/15/16 03:53 Calcium 8.1 mg/dL (8.6-10.8) L 10/15/16 03:53 Urine Protein 100 mg/dL (Neg-Trace) H 10/15/16 03:22 Urine Glucose (UA) 100 mg/dL (Normal) H 10/15/16 03:22 Urine Blood Trace (Negative) H 10/15/16 03:22 Ur Squamous Epith Cells Many per lpf (None-Few) H 10/15/16 03:22 Salicylates < 5.0 mg/dL (15-30) L 10/15/16 03:53 Urine Opiates Screen Positive ng/mL (Slizfd=065) H 10/15/16 03:22 Acetaminophen < 1.0 mcg/mL (10-30) L 10/15/16 03:53 U Marijuana (THC) Screen Positive ng/mL (Cutoff = 50) H 10/15/16 03:22 Ethyl Alcohol 224 mg/dL (0-10) H 10/15/16 03:53 - Clinical Findings Intake & Output: Intake & Output 10/14/16 10/15/16 10/15/16 23:59 07:59 15:59 Intake Total 1000 / 1000 1500 / 1500 Output Total 725 / 725 200 / 200 Balance 275 / 275 1300 / 1300 Weight 78 kg - Attending Attestation I examined this patient and my medical decision-making was reviewed with the BUNG SEWER/PA/Advanced Practice Nurse/Resident Physician. I agree with the documented findings, disposition and treatment plan as described except to the extent set forth below. Patient seen and examined. Labs, radiology, chart personally reviewed. 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 Patient had spontaneous breathing trial and after that he was extubated successfully. Patient will be transferred to the floor. Cardiovascular: stable Patient understand to avoid any substance that will suppress his breathing.
--- NOTE | 2016-10-15 15:24 | Pulmonology Consult Note ---
<Luke Andrade - Last Filed: 10/15/16 15:18> Date of Encounter: 10/15/16 Time of Encounter: 08:20 Assessment and Plan (1) Overdose Current Visit: Yes Status: Acute Arrived to ER unresponsive. No response to narcan. O2 sat 30%. Intubated and brought to ICU. Urine tox screen: opiate, tylenol, salicylate, EtOH 224. 10/15/16 CT head w/o contrast: unremarkable 10/15/16 CXR: unremarkable UA negative Mild leukocytosis likely stress response. Patient extubated this morning. Neurologic exam unremarkable. Patient denies chronic EtOH; no CIWA protocol at this time. - continue ativan PRN - DVT prophylaxis mechanical - PUD prophylaxis protonix - Regular diet - re-check electrolytes in the AM - Transfer to medical floor. Signed out to Dr. Ferrell; requests tele bed with sitter. Qualifiers: Encounter type: initial encounter Injury intent: accidental or unintentional Qualified Code(s): T50.901A - Poisoning by unspecified drugs, medicaments and biological substances, accidental (unintentional), initial encounter History of Present Illness Consult date: 10/15/16 Requesting physician: Henry Torres Reason for consult: other (Unresponsive; intubated) Chief complaint: overdose History of present illness: Mr. Saini arrived last night from a bar to the ED with overdose. O2 sat at arrival in ER was 30%, urine tox screen pos for opiate and EtOH. Unresponsive to narcan. CT head and CXR unremarkable. He was subsequently intubated. Patient was successfully extubated this morning. He is alert, oriented, with family bedside. He admits to previous substance abuse but was clean for several months. Last night was a relapse. He remembers drinking but does not know what other substances he took which may have included synthetic illicit substances. He denies any pain or discomfort at this time. No PMH, no PSH, no allergies, no daily medications. Patient states this was an accidental overdose. He denies suicidality, homicidality. Past Med Surg Social Fam HX - Past Medical History Medical history: non-contributory Psychiatric history: no psych history - Past Surgical History Surgical History: no surgical history - Social History Smoking Status: Current every day smoker Packs per day: 1 Smokeless Tobacco Status: No Alcohol use: occasionally Drug use: unknown Medications and Allergies No Known Home Drugs 10/15/16 [History] Allergies No Known Allergies Allergy (Verified 10/15/16 02:39) All Systems: A 10-system review of systems was performed and is negative for pertinent findings except as documented above in the HPI. - Constitutional Constitutional: as per HPI - EENT Nose, mouth and throat: no headache(s), no hoarseness, no neck pain, no sore throat - Cardiovascular Cardiovascular: no chest pain, no dyspnea, no palpitations - Respiratory Respiratory: no cough, no dyspnea, no hemoptysis, no wheezing, no pain on inspirtation - Gastrointestinal Gastrointestinal: no abdominal pain, no diarrhea, no nausea, no vomiting - Neurological Neurological: no confusion, no numbness, no paresthesias Physical Examination Vital Signs: Vital Signs, Last 4 Hours Pulse Resp BP Pulse Ox 10/15/16 15:00 61 16 112/59 97 10/15/16 14:00 56 18 117/70 97 10/15/16 13:00 56 16 110/91 99 10/15/16 12:00 60 16 113/63 96 General appearance: no acute distress, alert Eyes: nonicteric ENT: oropharynx moist Neck: supple Effort: normal Inspection: normal Auscultation: bilateral: clear Cardiovascular: regular rate and rhythm Gastrointestinal: normoactive bowel sounds, soft, non-tender, non-distended Integumentary: normal Extremities: no cyanosis, no edema, no clubbing, pink and warm, pulses normal Musculoskeletal: no deformities normal mental status, pupils equal and round mood appropriate, affect normal Ventilator Settings Ventilator Settings: Ventilator Settings, Last 8 Hours Ventilator Mode VC+ Ventilator Mode A/C Ventilator Tidal Volume 500 Setting Ventilator Tidal Volume 500 Setting Ventilator Respiratory Rate 16 Setting Ventilator Respiratory Rate 16 Setting Actual Respiratory Rate 16 Actual Respiratory Rate 16 Positive End Expiratory 5 Pressure Positive End Expiratory 5 Pressure Peak Inspiratory Airway 23 Pressure Peak Inspiratory Airway 22 Pressure Results - Laboratory Findings CBC and BMP: 10/15/16 03:53 10/15/16 03:53 ABG ABG pH 7.32 pH Units (7.32-7.45) D 10/15/16 05:35 ABG pCO2 53 mmHg (35-45) H 10/15/16 05:35 ABG pO2 136 mmHg (85-104) H 10/15/16 05:35 ABG O2 Saturation 99 % (95-98) H 10/15/16 05:35 Abnormal lab findings: Abnormal lab results WBC 12.3 K/mcL (4.3-11.1) H 10/15/16 03:53 Neutrophils # 10.6 K/mcL (1.6-8.9) H 10/15/16 03:53 ABG pCO2 53 mmHg (35-45) H 10/15/16 05:35 ABG pO2 136 mmHg (85-104) H 10/15/16 05:35 ABG HCO3 27.3 mEQ/L (21-27) H 10/15/16 05:35 ABG Total CO2 28.9 mEq/L (20-26) H 10/15/16 05:35 ABG O2 Saturation 99 % (95-98) H 10/15/16 05:35 Potassium 3.3 mEq/L (3.5-4.5) L 10/15/16 03:53 Chloride 110 mEq/L (98-109) H 10/15/16 03:53 Glucose 146 mg/dL (70-99) H 10/15/16 03:53 POC Glucose 91 (58-89) H 10/15/16 05:22 Calculated Osmolality 302 (280-300) H 10/15/16 03:53 Calcium 8.1 mg/dL (8.6-10.8) L 10/15/16 03:53 Urine Protein 100 mg/dL (Neg-Trace) H 10/15/16 03:22 Urine Glucose (UA) 100 mg/dL (Normal) H 10/15/16 03:22 Urine Blood Trace (Negative) H 10/15/16 03:22 Ur Squamous Epith Cells Many per lpf (None-Few) H 10/15/16 03:22 Salicylates < 5.0 mg/dL (15-30) L 10/15/16 03:53 Urine Opiates Screen Positive ng/mL (Mexodn=111) H 10/15/16 03:22 Acetaminophen < 1.0 mcg/mL (10-30) L 10/15/16 03:53 U Marijuana (THC) Screen Positive ng/mL (Cutoff = 50) H 10/15/16 03:22 Ethyl Alcohol 224 mg/dL (0-10) H 10/15/16 03:53 - Diagnostic Findings Chest x-ray: report reviewed, image reviewed - Clinical Findings Intake & Output: Intake & Output 10/14/16 10/15/16 10/15/16 23:59 07:59 15:59 Intake Total 1000 / 1000 1500 / 1500 Output Total 725 / 725 450 / 450 Balance 275 / 275 1050 / 1050 Weight 78 kg Consult Discharge Plan - Plan Referrals: NO,PCP [Primary Care Provider] - <Ambrose Gomez - Last Filed: 10/15/16 18:37> Date of Encounter: 10/15/16 All Systems: A 10-system review of systems was performed and is negative for pertinent findings except as documented above in the HPI. Physical Examination Vital Signs: Vital Signs, Last 4 Hours Temp Pulse Resp BP Pulse Ox 10/15/16 17:49 98.0 F 55 18 134/79 94 10/15/16 17:39 94 10/15/16 16:00 98.3 F 53 18 107/68 99 10/15/16 15:00 61 16 112/59 97 Results - Laboratory Findings CBC and BMP: 10/15/16 03:53 10/15/16 03:53 ABG ABG pH 7.32 pH Units (7.32-7.45) D 10/15/16 05:35 ABG pCO2 53 mmHg (35-45) H 10/15/16 05:35 ABG pO2 136 mmHg (85-104) H 10/15/16 05:35 ABG O2 Saturation 99 % (95-98) H 10/15/16 05:35 Abnormal lab findings: Abnormal lab results WBC 12.3 K/mcL (4.3-11.1) H 10/15/16 03:53 Neutrophils # 10.6 K/mcL (1.6-8.9) H 10/15/16 03:53 ABG pCO2 53 mmHg (35-45) H 10/15/16 05:35 ABG pO2 136 mmHg (85-104) H 10/15/16 05:35 ABG HCO3 27.3 mEQ/L (21-27) H 10/15/16 05:35 ABG Total CO2 28.9 mEq/L (20-26) H 10/15/16 05:35 ABG O2 Saturation 99 % (95-98) H 10/15/16 05:35 Potassium 3.3 mEq/L (3.5-4.5) L 10/15/16 03:53 Chloride 110 mEq/L (98-109) H 10/15/16 03:53 Glucose 146 mg/dL (70-99) H 10/15/16 03:53 POC Glucose 91 (58-89) H 10/15/16 05:22 Calculated Osmolality 302 (280-300) H 10/15/16 03:53 Calcium 8.1 mg/dL (8.6-10.8) L 10/15/16 03:53 Urine Protein 100 mg/dL (Neg-Trace) H 10/15/16 03:22 Urine Glucose (UA) 100 mg/dL (Normal) H 10/15/16 03:22 Urine Blood Trace (Negative) H 10/15/16 03:22 Ur Squamous Epith Cells Many per lpf (None-Few) H 10/15/16 03:22 Salicylates < 5.0 mg/dL (15-30) L 10/15/16 03:53 Urine Opiates Screen Positive ng/mL (Wszdba=143) H 10/15/16 03:22 Acetaminophen < 1.0 mcg/mL (10-30) L 10/15/16 03:53 U Marijuana (THC) Screen Positive ng/mL (Cutoff = 50) H 10/15/16 03:22 Ethyl Alcohol 224 mg/dL (0-10) H 10/15/16 03:53 - Clinical Findings Intake & Output: Intake & Output 10/15/16 10/15/16 10/15/16 07:59 15:59 23:59 Intake Total 1000 / 1000 2000 / 2000 200 / 200 Output Total 725 / 725 450 / 450 0 / 0 Balance 275 / 275 1550 / 1550 200 / 200 Weight 78 kg - Attending Attestation I examined this patient and my medical decision-making was reviewed with the LINTER TENDER/PA/Advanced Practice Nurse/Resident Physician. I agree with the documented findings, disposition and treatment plan as described except to the extent set forth below. Patient seen and examined. Labs, radiology, chart personally reviewed. 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 Patient had spontaneous breathing trial and after that he was extubated successfully. Patient will be transferred to the floor. Cardiovascular: stable Patient understand to avoid any substance that will suppress his breathing.
[2016-10-15] MEDS: Pantoprazole 40 MG VIAL IVP SCH (16:46)
[2016-10-16 06:08] LABS: Basophils % 0.4 %; Eosinophils # 0.1 K/mcL (0.0-0.6); Eosinophils % 1.4 %; Hematocrit 40.2 % (37.5-50.1); Immature Granulocytes % 0.4 % (0-4); Lymphocytes # 2.2 K/mcL (0.6-4.6); Lymphocytes % 25.7 %; Mean Corpuscular HGB Conc 32.8 g/dL (31.6-35.5); Mean Corpuscular Hemoglobin 30.3 pg (28.0-33.3); Mean Corpuscular Volume 92.2 fL (83.0-100.0); Mean Platelet Volume 10.1 fL (9.4-12.4); Monocytes # 0.7 K/mcL (0.0-1.3); Monocytes % 8.6 %; Neutrophils # 5.3 K/mcL (1.6-8.9); Platelet Count 176 K/mcL (140-400); Red Blood Count 4.36 M/mcL (4.19-5.50); Red Cell Distribution Width 13.8 % (11.5-14.5); Segmented Neutrophils % 63.5 %
[2016-10-16 06:16] LABS: BUN/Creatinine Ratio 16 (6-26); Blood Urea Nitrogen 15 mg/dL (8-26); Calcium 8.9 mg/dL (8.6-10.8); Carbon Dioxide 26 mEq/L (19-29); Chloride 106 mEq/L (98-109); Glucose 101 mg/dL (70-99); Osmolality,Calculated 291 (280-300); Potassium 4.3 mEq/L (3.5-4.5); Sodium 140 mEq/L (136-145); eGFR For African Americans > 60 (> 60); eGFR For Non-African Americans > 60 (> 60)
[2016-10-16 06:29] LABS: Hemoglobin 13.2 g/dL (12.9-16.9)
[2016-10-16 07:19] VITALS: BP 123/71
[2016-10-16] MEDS: Pantoprazole 40 MG VIAL IVP SCH (08:16)
--- NOTE | 2016-10-16 08:49 | Discharge Summary ---
Date of Encounter: 10/16/16 Time of Encounter: 08:47 - Discharge Diagnosis (1) Overdose Priority: Primary Status: Acute Qualifiers: Encounter type: initial encounter Injury intent: accidental or unintentional Qualified Code(s): T50.901A - Poisoning by unspecified drugs, medicaments and biological substances, accidental (unintentional), initial encounter (2) Opiate abuse, episodic Priority: Primary Status: Acute (3) Marijuana abuse Priority: Primary Status: Acute (4) Alcohol abuse Priority: Primary Status: Acute (5) Acute metabolic encephalopathy Priority: Primary Status: Resolved (6) Acute respiratory failure Priority: Primary Status: Resolved Qualifiers: Respiratory failure complication: hypoxia and hypercapnia Qualified Code(s) : J96.01 - Acute respiratory failure with hypoxia; J96.02 - Acute respiratory failure with hypercapnia (7) Metabolic acidosis with respiratory acidosis Priority: Primary Status: Resolved (8) Hypokalemia Priority: Primary Status: Resolved (9) Tobacco abuse Priority: Secondary Status: Chronic - Discharge Medications Home Medications: No Known Home Drugs 10/15/16 [History] Allergies/Adverse Reactions: Allergies No Known Allergies Allergy (Verified 10/15/16 02:39) Date of admission: 10/15/16 04:34 Primary care physician: PCP NO - Patient Status Disposition: Home, Self-Care Condition: Good Functional capacity at discharge: independent ambulation Overall status at discharge: patient is back to baseline - Discharge Instructions Follow Up With: NO,PCP [Primary Care Provider] - (F/U IN THE RESIDENT CLINIC IN 1 WEEK. PLEASE PROVIDE CLINIC NUMBER) Additional Instructions: PLEASE FOLLOW WITH A PRIMARY CARE DOCTOR IN 1 WEEK TO ADDRESS SUBSTANCE ABUSE. - Diet and Activity Activity: resume usual activities as tolerated Diet: regular diet Interval History: Patient has no complaints. He understands the reason why he is here in the hospital and states that he doesn't drink regularly and his last drink before this episode was 6 months ago. He is upset because he is unemployed but no suicidal ideations. He agrees on seeking help for substance abuse. Hospital course: Mr. Saini is a 21 year old male with past medical history of polysubstance abuse including alcohol, tobacco and marijuana. He was found unconscious at the bar was brought to our ED. In our ED, she was severely hypoxemic and unresponsive. He was emergently intubated and admitted to the intensive care unit. He received supportive therapy, including IV fluids, mechanical ventilation, and ICU care. Patient improved very quickly and was extubated the same day. She was weaned down to room air and transferred to medical floor where he remained hemodynamically stable. Patient denied any suicidal ideations. PLAN: As advised to seek help for substance abuse. He verbalized understanding and agreed. - Time Spent with Patient Total time spent providing and/or coordinating discharge services: - Constitutional Vitals: Temp Pulse Resp BP Pulse Ox 98.5 F 58 18 123/71 98 10/16/16 07:16 10/16/16 07:16 10/16/16 07:16 10/16/16 07:16 10/16/16 07:16 General appearance: Present: cooperative, A&O X 3, pleasant, no acute distress, answers questions appropriately - Respiratory Respiratory exam: Present: CTAB - Cardiovascular Cardiovascular exam: Present: RRR - GI/Abdominal GI/Abdominal exam: Present: normal bowel sounds, soft. Absent: distended, tenderness - Extremities Exam Extremities exam: Absent: pedal edema - Back Exam Back exam: Absent: CVA tenderness (L), CVA tenderness (R) - Neurological Exam Neurological exam: Present: alert, oriented X3, no focal deficits, strengths equal and symetr throughout. Absent: facial droop, speech deficit - Skin Skin exam: Absent: rash - VTE Documentation of Mechanical Device: Intermittent pneumatic compression device
[2016-10-16] MEDS ORDERED: Nicotine 21 MG PATCH.TD24 TD SCH (09:00)
[2016-10-16] MEDS ORDERED: *HR* Etomidate 20 MG/10 ML AMPUL IVP ONE (09:52)
[2016-10-16] MEDS ORDERED: *HR* Rocuronium Bromide 100 MG/10 ML VIAL IVC ONE (09:52)
--- NOTE | 2016-10-16 20:13 | Electrocardiograph Report ---
[place] [id number] Test Date: 2016-10-15 Pat Name: Andrea Saini Department: 102 Room: 3A13 Gender: M Public Address Servicer: Chintan : 1995 Requested By: Lyla See Order Number: [id number] Reading MD: Maykel Nagy MD Measurements Intervals [place] Rate: 70 P: 74 AR: 244 QRS: 77 QRSD: 117 T: 50 QT: 413 QTc: 434 Interpretive Statements SINUS RHYTHM WITH FIRST DEGREE AV BLOCK INCOMPLETE RIGHT BUNDLE BRANCH BLOCK Electronically Signed On 10-16-2016 20:11:41 EDT by Maykel Nagy MD
== END 2016-10-16 09:53 | disposition home or self-care (01) ==
LOC: EMEROO 02:38 → ICNU 04:34 → 3ANU 17:18
PROVIDERS: ADMIT Internal Medicine; ATTEND Internal Medicine